=== PATIENT | male | born 1990 | race Caucasian/White ===

== ENCOUNTER 2020-10-15 12:42 | Emergency (ER) | payer SELFPAY ==
--- NOTE | 2020-10-15 13:15 | ER ---
Nurse's Notes [facility] Name: Valerio Arriola Age: 30 yrs Sex: Male : 1990 Arrival Date: 10/15/2020 Time: 12:44 Bed 26 Private MD: Diagnosis: Acute suppurative otitis media;Impacted cerumen, right ear Presentation: 10/15 12:49 Chief complaint: Patient states: has had right ear pain and hearing loss since , em recently pain has been getting worse, denies fever. Coronavirus screen: Client denies travel out of the [place] in the last 14 days. Ebola Screen: Patient negative for fever greater than or equal to 101.5 degrees Fahrenheit, and additional compatible Ebola Virus Disease symptoms Patient denies exposure to infectious person. Patient denies travel to an Ebola-affected area in the 21 days before illness onset. No symptoms or risks identified at this time. Initial Sepsis Screen: Does the patient meet any 2 criteria? No. Patient's initial sepsis screen is negative. Does the patient have a suspected source of infection? No. Patient's initial sepsis screen is negative. Risk Assessment: Do you want to hurt yourself or someone else? Patient reports no desire to harm self or others. Onset of symptoms was October 15, 2020. 12:49 Method Of Arrival: Ambulatory em 12:49 Acuity: ANTHONY 4 em Historical: - Allergies: 12:51 No Known Allergies; em - PMHx: 12:51 Seizures; em - PSHx: 12:51 Hernia repair; Adenoids; em - Immunization history:: Adult Immunizations up to date. - Social history:: Smoking status: Patient reports the use of cigarette tobacco products, denies chronic smoking, but will smoke occasionally. Screenin:55 Abuse screen: Denies threats or abuse. Nutritional screening: No deficits noted. em Tuberculosis screening: No symptoms or risk factors identified. Fall Risk None identified. Assessment: 12:49 General: Appears in no apparent distress. comfortable, Behavior is calm, cooperative, em appropriate for age, Denies fever. Pain: Complains of pain in right ear Pain currently is 8 out of 10 on a pain scale. Neuro: Level of Consciousness is awake, alert, obeys commands, Oriented to person, place, time, situation, Appropriate for age. Cardiovascular: Capillary refill < 3 seconds Patient's skin is warm and dry. Respiratory: Airway is patent Respiratory effort is even, unlabored, Respiratory pattern is regular, symmetrical. EENT: Ear canal clear on right ear Reports hearing loss in right ear. Derm: Skin is intact, is healthy with good turgor, Skin is pink, warm \T\ dry. Musculoskeletal: Capillary refill < 3 seconds, Range of motion: intact in all extremities. 13:26 Reassessment: Patient appears in no apparent distress at this time. Patient and/or iw family updated on plan of care and expected duration. Pain level reassessed. Patient is alert, oriented x 3, equal unlabored respirations, skin warm/dry/pink. Vital Signs: 12:49 BP 143 / 101; Pulse 93; Resp 18; Temp 98.2; Pulse Ox 95% on R/A; Weight 74.84 kg; em Height 6 ft. 0 in. (182.88 cm); Pain 8/10; 12:49 Body Mass Index 22.38 (74.84 kg, 182.88 cm) em ED Course: 12:44 Patient arrived in ED. ag5 12:51 Triage completed. em 12:51 Arm band placed on. em 12:55 Patient has correct armband on for positive identification. Bed in low position. Call em light in reach. 13:01 [facility] 13:01 Saturnino Arevalo MD is Attending Physician. jr8 13:10 Ines Ragsdale, ONEL is Primary Nurse. iw 13:14 Theresa Singer MD is Referral Physician. jr8 13:26 No provider procedures requiring assistance completed. IV discontinued, intact, iw bleeding controlled, No redness/swelling at site. Pressure dressing applied. Administered Medications: No medications were administered Outcome: 13:15 Discharge ordered by . jr8 13:26 Discharged to home ambulatory. iw 13:26 Condition: good 13:26 Discharge instructions given to patient, Instructed on discharge instructions, follow up and referral plans. medication usage, Demonstrated understanding of instructions, follow-up care, medications, Prescriptions given X 1. 13:26 Patient left the ED. iw Signatures: Luc Armijo RN RN Ines Ragsdale RN RN Eric Harmon PA PA 8 Estephanie Biggs ag5
--- NOTE | 2020-10-15 13:15 | EDPHYS ---
Physician Documentation [facility] Name: Valerio Arriola Age: 30 yrs Sex: Male : 1990 Arrival Date: 10/15/2020 Time: 12:44 Bed 26 Private MD: ED Physician Saturnino Arevalo HPI: 10/15 13:11 This 30 yrs old Male presents to ER via Ambulatory with complaints of Ear jr8 Pain. 13:11 The patient presents with a fullness, hearing loss, partial, pain. The complaints jr8 affect the right ear. Onset: The symptoms/episode began/occurred gradually. Modifying factors: The symptoms are alleviated by nothing, the symptoms are aggravated by nothing. Associated signs and symptoms: The patient has no apparent associated signs or symptoms. Severity of symptoms: At their worst the symptoms were mild in the emergency department the symptoms are unchanged. The patient has not experienced similar symptoms in the past. The patient has not recently seen a physician. Historical: - Allergies: 12:51 No Known Allergies; em - PMHx: 12:51 Seizures; em - PSHx: 12:51 Hernia repair; Adenoids; em - Immunization history:: Adult Immunizations up to date. - Social history:: Smoking status: Patient reports the use of cigarette tobacco products, denies chronic smoking, but will smoke occasionally. ROS: 13:11 Constitutional: Negative for fever, chills, and weight loss. jr8 13:11 ENT: Positive for ear pain, hearing loss. 13:11 Neck: Positive for swollen nodes. 13:11 All other systems are negative. Exam: 13:11 Head/Face: Normocephalic, atraumatic. Eyes: Pupils equal round and reactive to light, jr8 extra-ocular motions intact. Lids and lashes normal. Conjunctiva and sclera are non-icteric and not injected. Cornea within normal limits. Periorbital areas with no swelling, redness, or edema. Cardiovascular: Regular rate and rhythm with a normal S1 and S2. No gallops, murmurs, or rubs. Normal PMI, no JVD. No pulse deficits. Respiratory: Lungs have equal breath sounds bilaterally, clear to auscultation and percussion. No rales, rhonchi or wheezes noted. No increased work of breathing, no retractions or nasal flaring. Skin: Warm, dry with normal turgor. Normal color with no rashes, no lesions, and no evidence of cellulitis. MS/ Extremity: Pulses equal, no cyanosis. Neurovascular intact. Full, normal range of motion. Neuro: Awake and alert, GCS 15, oriented to person, place, time, and situation. Cranial nerves II-XII grossly intact. Motor strength 5/5 in all extremities. Sensory grossly intact. Cerebellar exam normal. Normal gait. 13:11 ENT: External ear(s): are unremarkable, Ear canal(s): cerumen impaction, that is severe, that is hard, occluding the right ear canal, erythema, that is minimal, of the right canal, TM's: erythema, that is mild, on the right, Not well visualized secondary to severe cerumen impaction right ear. 13:15 Neck: External neck: is normal, Thyroid: appears normal, Trachea: is midline with no jr8 obvious abnormalities, ROM/movement: is normal, Lymph nodes: lymphadenopathy is appreciated, anterior cervical nodes. Vital Signs: 12:49 BP 143 / 101; Pulse 93; Resp 18; Temp 98.2; Pulse Ox 95% on R/A; Weight 74.84 kg; em Height 6 ft. 0 in. (182.88 cm); Pain 8/10; 12:49 Body Mass Index 22.38 (74.84 kg, 182.88 cm) em MDM: 13:01 Patient medically screened. jr8 13:11 Data reviewed: vital signs, nurses notes, and as a result, I will discharge patient. jr8 Data interpreted: Pulse oximetry: on room air is 95 %. Interpretation: normal. Counseling: I had a detailed discussion with the patient and/or guardian regarding: the historical points, exam findings, and any diagnostic results supporting the discharge/admit diagnosis, the need for outpatient follow up, an ENT specialist, to return to the emergency department if symptoms worsen or persist or if there are any questions or concerns that arise at home. Administered Medications: No medications were administered Disposition: 13:29 Co-signature as Attending Physician, Saturnino Arevalo MD. rn Disposition: 10/15/20 13:15 Discharged to Home. Impression: Acute suppurative otitis media, Impacted cerumen, right ear. - Condition is Stable. - Discharge Instructions: Earwax Buildup, Adult, Otitis Media, Adult. - Prescriptions for Amoxicillin 875 mg Oral Tablet - take 1 tablet by ORAL route every 12 hours for 10 days; 20 tablet. - Medication Reconciliation Form, Thank You Letter, Antibiotic Education, Prescription Opioid Use form. - Follow up: Theresa Singer MD; When: 2 - 3 days; Reason: Recheck today's complaints, Continuance of care, Re-evaluation by your physician. - Problem is new. - Symptoms have improved. Signatures: Luc Armijo RN RN em Ines Ragsdale RN RN iw Saturnino Arevalo MD MD rn Roszak, Josh, PA PA jr8 Corrections: (The following items were deleted from the chart) 13:26 13:15 10/15/2020 13:15 Discharged to Home. Impression: Acute suppurative otitis media; iw Impacted cerumen, right ear. Condition is Stable. Forms are Medication Reconciliation Form, Thank You Letter, Antibiotic Education, Prescription Opioid Use. Follow up: Theresa Singer; When: 2 - 3 days; Reason: Recheck today's complaints, Continuance of care, Re-evaluation by your physician. Problem is new. Symptoms have improved. jr8
[2020-10-15 13:47] VITALS: BP 143/101; TEMP 98.2; O2SAT 95
== END 2020-10-15 13:26 | disposition home or self-care (01) ==
LOC: ER 12:42
DX: H66.001 Acute suppurative otitis media without spontaneous rupture of ear drum, right ear (principal); H61.21 Impacted cerumen, right ear; F17.210 Nicotine dependence, cigarettes, uncomplicated
CPT/HCPCS: 99282

== ENCOUNTER 2021-02-04 09:21 | Emergency (ER) | payer SELFPAY ==
[2021-02-04] MEDS ORDERED: methocarbamoL 500 MG TAB ONE (10:42)
[2021-02-04] MEDS ORDERED: dexAMETHasone 10 MG/ML VIAL ONE (10:42)
[2021-02-04] MEDS ORDERED: KETOROLAC 30 MG/ML INJ ONE (10:42)
[2021-02-04 10:45] LABS: Absolute Lymphocytes (CBC) 1.7 K/uL (0.7-4.9); Basophils % 0.6 % (0-1.3); Hematocrit 41.6 % (39.6-49.0); Lymphocytes % 26.5 % (15.3-44.8); MPV 9.3 fL (7.6-11.3)
[2021-02-04 10:46] LABS: BUN Blood Urea Nitrogen 10 mg/dL (7-18); Bicarbonate 28 mmol/L (21-32); Glucose Level 103 mg/dL (74-106); Potassium 4.5 mmol/L (3.5-5.1); Sodium Level 143 mmol/L (136-145)
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
[2021-02-04 12:24] VITALS: TEMP 98.3
[2021-02-04 12:27] VITALS: BP 104/70; O2SAT 98
== END 2021-02-04 12:08 | disposition home or self-care (01) ==
LOC: ER 09:21
DX: M54.16 Radiculopathy, lumbar region (principal); V89.2XXS Person injured in unspecified motor-vehicle accident, traffic, sequela; F17.210 Nicotine dependence, cigarettes, uncomplicated
CPT/HCPCS: 36415; 80048; 85025; 96374; 96375; 99284; J1100

== ENCOUNTER 2022-02-03 18:07 | Emergency (ER) | payer SELFPAY ==
[2022-02-03] MEDS ORDERED: DIPHENHYDRAMINE 25 MG TAB/CAP ONE (21:13)
[2022-02-03] MEDS ORDERED: predniSONE 20 MG TAB ONE (21:13)
[2022-02-03] MEDS ORDERED: FAMOTIDINE 20 MG TAB ONE (21:13)
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
[2022-02-03 23:28] VITALS: TEMP 98.2
[2022-02-03 23:31] VITALS: BP 131/86; O2SAT 96
== END 2022-02-03 23:08 | disposition home or self-care (01) ==
LOC: ER 18:07
DX: L29.9 Pruritus, unspecified (principal); T63.441A Toxic effect of venom of bees, accidental (unintentional), initial encounter; F17.210 Nicotine dependence, cigarettes, uncomplicated
CPT/HCPCS: 99283; J7512

== ENCOUNTER 2022-11-23 13:54 | Emergency (ER) | payer OTHER ==
--- NOTE | 2022-11-23 14:57 | RAD REPORT ---
EXAM DESCRIPTION: Shoulder Right 2 View - 11/23/2022 2:43 pm CLINICAL HISTORY: PAIN COMPARISON: None available TECHNIQUE: Internal and external rotation views of the right shoulder were obtained. FINDINGS: There is no fracture or dislocation. AC joint is normal in appearance. No acute or suspici ous findings. IMPRESSION: Negative two-view right shoulder examination.
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
== END 2022-11-23 15:37 | disposition home or self-care (01) ==
LOC: ER 13:54
DX: M25.511 Pain in right shoulder (principal); Z72.0 Tobacco use
CPT/HCPCS: 99283

== ENCOUNTER → 2023-10-11 | Emergency (ER) | payer OTHER ==
[~2023-10-11] MED LIST: ASPIRIN 81 MG CHEWABLE TABLET ONE
--- OUTSIDE RECORDS SUMMARY | 2023-10-11 10:16 | XMS REPORT | Continuity of Care Document ---
Author Name Unknown Address [address] [place] [address] [address] [employer] Address [address] [place] [address] [address]. [address] [place] [address] Care Team Providers Care Staffing Associate Name Role Phone ESTHER SCALES Attending Clinician Unavailab le Payers Payer Name Policy Type Policy Number Effective Date Expirati on Date Source [facility] [employer] 94 ON 9 [id number] 2022 00:00:00 Encounters Start Date/Time End Date/Time Encounter Type Admission Type Attending Clinicians Care Facility Care Department Encounter ID Source 2023-10-11 11:30:00 2023-10-11 11:30:00 Outpatient ESTHER SCALES [id number] Dior Trent
[2023-10-11 11:08] LABS: Absolute Lymphocytes (CBC) 2.1 K/uL (0.7-4.9); Hematocrit 39.3 % (39.6-49.0); Lymphocytes % 33.3 % (15.3-44.8); MCV 85.1 fL (80-100); MPV 9.3 fL (7.6-11.3); Platelets 209 thou/uL (152-406); RBC Red Blood Cell Count 4.61 M/uL (4.33-5.43)
--- NOTE | 2023-10-11 11:19 | RAD REPORT ---
EXAM DESCRIPTION: RAD - Chest Single View - 10/11/2023 11:05 am CLINICAL HISTORY: CHEST PAIN COMPARISON: No comparisons FINDINGS: Lines: None. Lungs: No evidence of edema or pneumonia. Pleural: No significant pleural effusions or pneumothorax. Cardiac: The heart size is within normal limits. Mediastinum: Within normal limits. Bones: No acute fractures. Other: None IMPRESSION: No acute cardiopulmonary disease.
[2023-10-11 11:22] LABS: Potassium 3.6 mEq/L (3.5-5.1); Troponin High Sensitivity 3.2 pg/mL (<58.9)
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
[2023-10-11 12:50] VITALS: TEMP 98; O2SAT 100
[2023-10-11 13:08] VITALS: BP 131/79
--- NOTE | 2023-10-15 15:14 | EKG ---
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
== END ==
LOC: ER 10:13
DX: R06.02 Shortness of breath (principal); I10 Essential (primary) hypertension; R07.89 Other chest pain; F17.210 Nicotine dependence, cigarettes, uncomplicated
CPT/HCPCS: 36415; 71045; 80048; 84484; 85025; 85379; 93005

== ENCOUNTER 2024-06-12 17:45 | Emergency (ER) | payer OTHER ==
--- OUTSIDE RECORDS SUMMARY | 2024-06-12 17:48 | XMS REPORT | Continuity of Care Document ---
Author Name Unknown Address [address] [facility] [address] thconnect Address [address] [facility] [address] [place] [address] Care Team Providers Care Publications Inspector Name Role Phone CHINEDU OBRIEN Attending Clinician ESTHER Buck Attending Clinician UnavailELIAZAR Grullon Attending Clinician Unavailable MD KATIE Attending Clinician Unavailab Meza7 Attending Clinician Unavailable AMA Khan Attending Clinician Unavailable TANIA VELASQUEZ Attending Clinician Unav ailable LAB90 Attending Clinician Unavailable Payers Payer Name Policy Type Policy Number Effective Date Expirati on Date Source AETNA MP [employer] [employer] 5 O [employer] 94 [place] 9 [id number] 2024 00:00:00 Problems Condition Name Condition Details Condition Category Status Onset Date Resolution Date Last Treatment Date Treating Clinician Comments Source Unintentio nal weight loss Unintentio nal weight loss Disease Active 01-08 00:00: 00 Dior Rodrigueza [place] Well adult exam Well adult exam Disease Active - 00:00: 00 Dior Wray Externa [place] Muscle spasm Muscle spasm Disease Active - 00:00: 00 Dior ibrahim Moderate episode of recurrent major depressive disorder Moderate episode of recurrent major depressive disorder Disease Active - 00:00: 00 Dior ibrahim Chest pain Chest pain Disease Active - 00:00: 00 Dior ibrahim Social History Social Habit Start Date Stop Date Quantity Comments Source History of tobacco use Cigarette Smoker Dior gramajo - External Sexual orientation Tawny sullivan Twan - External Alcoholic beverage intake 2024-04-03 00:00:00 2024-04-03 00:00:00 Ex-drinker (finding) Dior Trent - External Tobacco use and exposure 2024-01-09 00:00:00 2024-01-09 00:00:00 Smokeless tobacco non-user Dior Trent - Erlinda Cigarettes smoked current (pack per day) - Reported 2024-01-09 00:00:00 2024-01-09 00:00:00 Dior Trent - External Cigarette pack-years 2024-01-09 00:00:00 2024-01-09 00:00:00 Dior Trent - External Alcohol intake 2023-11-09 00:00:00 2023-11-09 00:00:00 Ex-drinker (finding) Dior Trent - External History of Social function 2023-11-08 00:00:00 2023-11-08 00:00:00 Dior Trent - External Sex [birth year] at 1990 00:00:00 1990 00:00:00 Dior Trent - External Smoking Status Start Date Stop Date Source Ex-smoker 2024-01-09 00:00:00 2024-01-09 00:00:00 Tawny elizondojosef Trent - External Medications Ordered Medication Name Filled Medication Name Start Date Stop Date Current Medication? Ordering Clinician Indication Dosage Frequency Signature (SIG) Comments Components Source Nicotine Polacrilex 2 MG mouth/throa t Gum 02-05 00:00: 00 Yes [id number] 2mg Take 1 each (2 mg total) by mouth as needed for smoking cessation. Dior Rodrigueza l Tizanidine HCl 2 MG oral Tablet 11-08 00:00: 00 04-03 00:00 :00 No [id number] 2mg QD Take 1 tablet (2 mg total) by mouth nightly No driving on medication . Dior Wray Externa l Immunizations Ordered Immunization Name Filled Immunization Name Date Status Comments Source Tdap- (Boostrix, Adacel) Unknown Completed Diro Wray External Tdap- (Boostrix, Adacel) Unknown Completed Dior Seybold - External Tdap- (Boostrix, Adacel) Unknown Completed Dior Seybold - External Vital Signs Vital Name Observation Time Observation Value Comments S case Systolic blood pressure 2024-04-03 20:48:00 114 mm[Hg] Dior Medinaybo ld - External Diastolic blood pressure 2024-04-03 20:48:00 78 mm[Hg] Dior Medinaybo ld - External Heart rate 2024-04-03 20:48:00 68 /min Luchose y Seybold - External Body temperature 2024-04-03 20:48:00 37 [place] Dior Seybold - External Respiratory rate 2024-04-03 20:48:00 20 /min Dior Seybold - External Body height 2024-04-03 20:48:00 182.9 cm Priscilla pearce Seybold - External Body weight 2024-04-03 20:48:00 66.225 kg Priscilla ey Seybold - External BMI 2024-04-03 20:48:00 19.80 kg/m2 Priscilla ey Seybold - External Oxygen saturation in Arterial blood by Pulse oximetry 2024-04-03 20:48:00 97 /min Dior Medinaybo ld - External Systolic blood pressure 2024-01-09 13:53:00 112 mm[Hg] Dior Medinaybo ld - External Diastolic blood pressure 2024-01-09 13:53:00 58 mm[Hg] Dior Navarroo ld - External Heart rate 2024-01-09 13:53:00 77 /min Baldo y Seybold - External Body temperature 2024-01-09 13:53:00 36.56 [place] Dior Seybold - External Respiratory rate 2024-01-09 13:53:00 16 /min Dior Seybold - External Body height 2024-01-09 13:53:00 182.9 cm Priscilla ey Seybold - External Body weight 2024-01-09 13:53:00 65.318 kg Priscilla ey Seybold - External BMI 2024-01-09 13:53:00 19.53 kg/m2 Priscilla ey Seybold - External Oxygen saturation in Arterial blood by Pulse oximetry 2024-01-09 13:53:00 98 /min Dior Navarroo ld - External Systolic blood pressure 2023-11-09 15:07:00 98 mm[Hg] Dior Seybo ld - External Diastolic blood pressure 2023-11-09 15:07:00 60 mm[Hg] Dior Seybo ld - External Heart rate 2023-11-09 15:07:00 84 /min Kelse y Seybold - External Body temperature 2023-11-09 15:07:00 36.39 [place] Dior Seybold - External Respiratory rate 2023-11-09 15:07:00 16 /min Dior Seybold - External Body height 2023-11-09 15:07:00 182.9 cm Priscilla ey Seybold - External Body weight 2023-11-09 15:07:00 66.225 kg Priscilla ey Seybold - External BMI 2023-11-09 15:07:00 19.80 kg/m2 Priscilla ey Seybold - External Oxygen saturation in Arterial blood by Pulse oximetry 2023-11-09 15:07:00 99 /min Dior Medinaybo ld - External Systolic blood pressure 2023-10-11 21:28:00 118 mm[Hg] Dior Seybo ld - External Diastolic blood pressure 2023-10-11 21:28:00 68 mm[Hg] Dior Medinaybo ld - External Heart rate 2023-10-11 21:28:00 78 /min Luchose y Seybold - External Body temperature 2023-10-11 21:28:00 36.72 [place] Dior Seybold - External Respiratory rate 2023-10-11 21:28:00 18 /min Dior Seybold - External Body height 2023-10-11 21:28:00 182.9 cm Priscilla ey Seybold - External Body weight 2023-10-11 21:28:00 65.091 kg Priscilla ey Seybold - External BMI 2023-10-11 21:28:00 19.46 kg/m2 Priscilla ey Seybold - External Oxygen saturation in Arterial blood by Pulse oximetry 2023-10-11 21:28:00 99 /min Dior Navarroo ld - External Encounters Start Date/Time End Date/Time Encounter Type Admission Type Attending [facility] Facility Care Department Encounter ID Source 2024-06-16 10:00:00 2024-06-16 10:00:00 Outpatient CHINEDU OBRIEN DIOR NANCE [id number] [facility] 2024-06-16 08:30:00 2024-06-16 08:30:00 Outpatient ESTHER SCALESKODY NANCE [id number] [facility] 2024-06-12 00:00:00 2024-06-12 00:00:00 Outpatient ESTHER SCALESKODY NANCE [id number] [facility] 2024-04-04 16:40:00 2024-04-04 16:40:00 Outpatient JENIFER, ELIAZAR NANCE [id number] [facility] 2024-04-04 00:00:00 2024-04-04 00:00:00 Outpatient MD DIOR ALVA [id number] [facility] 2024-04-03 16:00:00 2024-04-03 16:00:00 Outpatient ESTHER SCALES DIOR NANCE [id number] [facility] 2024-03-25 10:30:00 2024-03-25 10:30:00 Outpatient MICAH, CHINEDU DIOR NANCE [id number] [facility] 2024-03-20 15:00:00 2024-03-20 15:00:00 Outpatient HARMS, CHINEDU DIOR NANCE [id number] [facility] 2024-03-18 00:00:00 2024-03-18 00:00:00 Outpatient ESTHER SCALES DIOR NANCE [id number] [facility] 2024-03-17 16:00:00 2024-03-17 16:00:00 Outpatient ESTHER SCALES DIOR NANCE [id number] [facility] 2024-03-03 16:30:00 2024-03-03 16:30:00 Outpatient ESTHER SCALES DIOR NANCE [id number] [facility] 2024-02-29 14:00:00 2024-02-29 14:00:00 Outpatient JENIFER, ELIAZAR NANCE [id number] [facility] 2024-02-21 16:00:2024-02-21 16:00:00 Outpatient ESTHER SCALESKODY NANCE [id number] [facility] 2024-02-17 00:00:00 2024-02-17 00:00:00 Outpatient ESTHER SCALES DIOR [id number] [facility] 2024-02-14 14:00:00 2024-02-14 14:00:00 Outpatient DIOR NANCE [id number] [facility] 2024-02-14 11:00:00 2024-02-14 11:00:00 Outpatient TREParris7 DIOR NANCE [id number] [facility] 2024-02-13 14:00:00 2024-02-13 14:00:00 Outpatient DIOR NANCE [id number] [facility] 2024-02-11 16:30:00 2024-02-11 16:30:00 Outpatient ESTHER SCALES DIOR NANCE [id number] [facility] 2024-02-06 08:50:00 2024-02-06 08:50:00 Outpatient 39AMA DIOR NANCE [id number] [facility] 2024-02-06 08:15:00 2024-02-06 08:15:00 Outpatient MICAHCHINEDU [id number] [facility] 2024-01-09 09:00:00 2024-01-09 09:00:00 Outpatient ESTHER SCALES DIOR NANCE [id number] [facility] 2024-01-01 08:30:00 2024-01-01 08:30:00 Outpatient CHINEDU OBRIEN DIOR NANCE [id number] [facility] 2023-12-18 14:10:00 2023-12-18 14:10:00 Outpatient EVATANIA JOSE [id number] [facility] 2023-11-12 00:00:00 2023-11-12 00:00:00 Outpatient ESTHER SCALES DIOR NANCE [id number] [facility] 2023-11-09 09:55:00 2023-11-09 09:55:00 Outpatient LAB90 [id number] 09:00:00 2023-11-09 09:00:00 Outpatient ESTHER SCALES [id number] [facility] 2023-10-11 15:30:00 2023-10-11 15:30:00 Outpatient LOYDA ESTHER DIOR NANCE [id number] [facility] Notes Date/Time Note Provider Source 2024-04-03 15:52:18 Chief Complaint Patient presents with Follow-up 1 month follow up Jayde Kramer LVN [facility] 2023-11-09 09:10:48 Chief Complaint Patient presents with Physical Is not fasting Jayde Kramer LVN [facility] 2023-10-11 15:34:11 Chief Complaint Patient presents with ER F/U ER follow up today from 10/11/2023. Pain to left side around rib cage. .me [facility]
--- NOTE | 2024-06-12 18:32 | RAD REPORT ---
EXAMINATION: ONE VIEW CHEST XR CLINICAL INDICATION: CHEST PAIN TECHNIQUE: Frontal chest projection is submitted. Examination is limited by patient positioning and t echnique. COMPARISON: 10/11/2023 FINDINGS: The lungs are well inflated and clear. The heart is normal in size. No displaced fractures identified . IMPRESSION: No acute intrathoracic abnormalities.
[2024-06-12 19:04] LABS: Absolute Basophils 0.1 K/uL (0-0.5); Absolute Eosinophils 0.1 K/uL (0-0.5); Absolute Lymphocytes (CBC) 2.2 K/uL (0.7-4.9); Absolute Monocytes 0.4 K/uL (0.1-1.3); Basophils % 0.8 % (0-1.3); Eosinophils % 1.1 % (0-4.4); Hemoglobin 12.5 g/dL (13.6-17.9); Lymphocytes % 32.3 % (15.3-44.8); MCH 28.3 pg (27.0-35.0); MCHC 32.9 g/dL (32.0-36.0); MCV 86.1 fL (80-100); MPV 9.2 fL (7.6-11.3); Monocytes % 5.8 % (3.3-12.3); Platelets 201 thou/uL (152-406); RBC Red Blood Cell Count 4.42 M/uL (4.33-5.43)
[2024-06-12 19:21] LABS: Anion Gap 4.8 mEq/L (5.0-15.0); Potassium 3.8 mEq/L (3.5-5.1)
[2024-06-12] MEDS ORDERED: ASPIRIN 81 MG CHEWABLE TABLET ONE (19:29)
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
[2024-06-13 08:37] VITALS: O2SAT 100
[2024-06-13 08:39] VITALS: BP 118/90; TEMP 98
--- NOTE | 2024-06-13 16:34 | EKG ---
Test Date: 2024-06-12 Test Time: 18:01:54 [employer]: TROY MEASUREMENT RESULTS: Intervals: Rate: 89 [place]: 120 QRSD: 84 QT: 350 QTc: 425 [place]: P: -7 [place]: 120 QRS: 95 T: 66 INTERPRETIVE STATEMENTS: Normal sinus rhythm with sinus arrhythmia Normal ECG Compared to ECG 10/11/2023 10:26:14 Short [place] interval no longer present Right-axis deviation no longer present Electronically Signed On 06-13-24 16:31:55 CDT by Rob Land
== END 2024-06-12 20:05 | disposition home or self-care (01) ==
LOC: ER 17:45
DX: R07.9 Chest pain, unspecified (principal); R20.0 Anesthesia of skin; F17.210 Nicotine dependence, cigarettes, uncomplicated
CPT/HCPCS: 36415; 71045; 80048; 84484; 85025; 85379; 93005; 99284